=== PATIENT | female | born 1990 | race Hispanic/Latino ===

== ENCOUNTER 2017-04-03 23:02 | Emergency (ER) | payer OTHER ==
[2017-04-03 23:38] VITALS: BP 123/69; PULSE 76; RESP 16; TEMP 98.3; O2SAT 100
--- NOTE | 2017-04-03 23:55 | ED PDOC ---
HPI: Headache Time Seen by Provider: 04/03/17 23:34 Chief Complaint (Nursing): Trauma Chief Complaint (Provider): Headache History Per: Patient Additional Complaint(s): 26 yo female, no PMH, presents to ED with complaints of hitting her head against a wall s/p slip and fall. Pt fell backwards and hit the back of her head against the wall. Event occurred ~ 2 hours ago. no LOC. no alterations in behavior. No episodes of vomiting. Pt notes headache and dizziness at this time Past Medical History Reviewed: Nursing Documentation, Vital Signs Vital Signs: Last Vital Signs Temp 98.3 F 04/03/17 23:34 Pulse 76 04/03/17 23:34 Resp 16 04/03/17 23:34 BP 123/69 04/03/17 23:34 Pulse Ox 100 04/03/17 23:34 - Medical History PMH: No Chronic Diseases - Surgical History Surgical History: No Surg Hx - Family History Family History: States: No Known Family Hx - Living Arrangements Living Arrangements: With Family - Social History Current smoker - smoking cessation education provided: No Ex-Smoker (has not smoked in the last 12 months): No Alcohol: Social Drugs: Denies - Allergies Allergies/Adverse Reactions: Allergies Allergy/AdvReac Type Severity Reaction Status Date / Time BERRIES Allergy RASH Uncoded 04/03/17 23:34 Review of Systems ROS Statement: Except As Marked, All Systems Reviewed And Found Negative Gastrointestinal: Positive for: Nausea Neurological: Positive for: Headache Physical Exam - Reviewed Nursing Documentation Reviewed: Yes Vital Signs Reviewed: Yes - Physical Exam Appears: Positive for: Well, Non-toxic, No Acute Distress Head Exam: Positive for: NORMOCEPHALIC. Negative for: ATRAUMATIC (tenderness to occipital scal, small area of erythema noted, no edema no ecchymosis) Skin: Positive for: Normal Color, Warm, DRY Eye Exam: Positive for: EOMI, Normal appearance, PERRL ENT: Positive for: Normal ENT Inspection Neck: Positive for: Normal, Painless ROM Cardiovascular/Chest: Positive for: Regular Rate, Rhythm Respiratory: Positive for: CNT, Normal Breath Sounds Gastrointestinal/Abdominal: Positive for: Normal Exam, Bowel Sounds, Soft Back: Positive for: Normal Inspection Extremity: Positive for: Normal ROM Neurologic/Psych: Positive for: Alert, Oriented - ECG O2 Sat by Pulse Oximetry: 100 Medical Decision Making Medical Decision Making: Imaging study not clinically indicated at this time Pt medicated with Reglan and Motrin PO neuro exam non focal on re-eval. no complaints Stable for discharge on re-eval. Disposition - Clinical Impression Clinical Impression: Head injury - Patient ED Disposition Is Patient to be Admitted: No - Disposition Referrals: Gisela Carlos [Outside] Disposition: Routine/Home Disposition Time: 02:29 Condition: STABLE Instructions: Head Injury (ED) Forms: Gisela Merino (Malay), [facility] ED School/Work Excuse - POA Present On Arrival: None
== END 2017-04-04 01:58 | disposition home or self-care (01) ==
LOC: H.ER 23:02
DX: S09.90XA Unspecified injury of head, initial encounter (principal); Z87.891 Personal history of nicotine dependence; W01.198A Fall on same level from slipping, tripping and stumbling with subsequent striking against other object, initial encounter; Y93.9 Activity, unspecified; Y92.9 Unspecified place or not applicable